=== PATIENT | male | born 1975 | race Hispanic/Latino ===

== ENCOUNTER 2018-11-12 07:20 | Day surgery (SDC) | payer SELFPAY ==
[2018-10-19 16:41] VITALS: BP 131/75
[2018-10-19 16:42] LABS: BASOPHILS % (AUTO) 0.8 % (0.0-5.0); EOSINOPHILS % (AUTO) 4.2 % (0.0-8.0); HEMATOCRIT 46.6 % (42-54); LYMPHOCYTES % (AUTO) 25.2 % (21.0-51.0); MEAN CORPUSCULAR HEMOGLOBIN 29.1 pg (27.0-33.0); MEAN CORPUSCULAR HGB CONC 34.1 g/dL (32.0-36.0); MEAN CORPUSCULAR VOLUME 85.2 fL (79-99); MONOCYTES % (AUTO) 7.8 % (3.0-13.0); PLATELET COUNT (AUTO) 313 K/uL (130-400); RED BLOOD CELL COUNT(AUTO) 5.47 MIL/uL (4.50-6.20); RED CELL DISTRIBUTION WIDTH 13.6 % (11.0-15.5); WHITE BLOOD COUNT (AUTO) 7.5 K/uL (4.8-10.8)
[~2018-11-12] VITALS: Ht 177.8 cm; Wt 93.8 kg
[2018-11-12] VITALS (20 sets, daily range): BP systolic 108–149; BP diastolic 73–92
[~2018-11-12 07:20] MED LIST: BUPIVACAINE/PF 0.25% 30ML VIAL IJ ONE
[2018-11-12] MEDS: CEFAZOLIN SODIUM 1 GM VIAL IVP SCH ×2 (08:00→08:40)
[2018-11-12] MEDS ORDERED: LACTATED RINGERS 1000ML 1,000 ML IV ONE (08:10)
--- NOTE | 2018-11-12 08:30 | NUR ---
SHAVED ABDOMEN WITH CLIPPERS PER EL MILES.
[2018-11-12] MEDS ORDERED: LIDOCAINE PF 2% 5ML ABBOJECT ONE (08:37)
[2018-11-12] MEDS ORDERED: DEXAMETHASONE SOD PHOSPHATE 10MG/ML 1ML VIAL ONE (08:37)
[2018-11-12] MEDS ORDERED: PROPOFOL 10 MG/ML 20ML VIAL IV ONE (08:38)
[2018-11-12] MEDS ORDERED: MIDAZOLAM HCL 1 MG/ML 2ML VIAL ONE (08:38)
[2018-11-12] MEDS ORDERED: FENTANYL CITRATE PF 50 MCG/1 ML 2ML VIAL ONE (08:38)
[2018-11-12] MEDS ORDERED: ONDANSETRON HCL 4 MG/2 ML VIAL ONE (08:38)
[2018-11-12] MEDS ORDERED: ROCURONIUM 10MG/1ML SYR 10 MG/ML ML ONE ×2 (08:41→08:46)
[2018-11-12] MEDS ORDERED: NEOSTIGMINE 5MG/5ML SYR IV ONE (09:12)
[2018-11-12] MEDS ORDERED: GLYCOPYRROLATE 1 MG/5 ML SYRINGE ONE (09:12)
[2018-11-12] MEDS ORDERED: KETOROLAC TROMETHAMINE 30MG/ML ONE (12:09)
== END 2018-11-12 12:45 | disposition home or self-care (01) ==
LOC: DAH 07:20
PROVIDERS: ATTEND Surgery
DX: K42.9 Umbilical hernia without obstruction or gangrene (principal); E66.9 Obesity, unspecified
CPT/HCPCS: 36415; 49585; 85025; A4218; A4450; A4452; A4606; C1781; J0690; J1100; J1885; J2001; J2250; J2405; J2704; J2710; J3010; J3490 ×2; J7120 ×2

== ENCOUNTER 2024-05-01 10:36 | Emergency (ER) | payer OTHER, SELFPAY ==
[~2024-05-01] VITALS: Ht 167.6 cm; Wt 104.3 kg
[2024-05-01] MEDS: ibuPROFEN 800 MG TAB PO ONE (11:43)
[2024-05-01] MEDS: cloNIDine HCL 0.2 MG TABLET PO ONE (11:43)
[2024-05-01 12:55] VITALS: BP 141/89; PULSE 72; RESP 18; TEMP 98.1; O2SAT 98
[2024-05-01] MEDS ORDERED: IBUP-2077 PO (13:10)
[2024-05-01] MEDS ORDERED: CLON0.1T PO (13:10)
== END 2024-05-01 13:33 | disposition home or self-care (01) ==
LOC: EDH 10:36
DX: S20.211A Contusion of right front wall of thorax, initial encounter (principal); I10 Essential (primary) hypertension; Z98.890 Other specified postprocedural states; V89.2XXA Person injured in unspecified motor-vehicle accident, traffic, initial encounter; Y93.89 Activity, other specified; Y92.488 Other paved roadways as the place of occurrence of the external cause; Y99.8 Other external cause status
CPT/HCPCS: 71100